=== PATIENT | female | born 1970 | race Caucasian/White ===

== ENCOUNTER 2016-06-24 13:25 | Inpatient (IN) | payer OTHER ==
--- NOTE | ~2016-06-24 | DS ---
Unit #: [id number] #: [id number] Patient: NOHEMY LOMAS [id number] [address] [address] [id number] I MR#: [id number] NAME: NOHEMY LOMAS ROOM: [facility] Age: 46 Sex: F Admission Date: 06/24/2016 : 1970 Discharge Date: 06/27/2016 Attending Physician: Loreto Taveras M.D. Primary Care Physician: No Primary Care Physician DISCHARGE SUMMARY SUMMARY PRINCIPAL DIAGNOSES 1. Severe anoxic encephalopathy. 2. Status post cardiopulmonary arrest. 3. Unintentional heroin overdose. 4. Acute hypoxic respiratory failure. 5. Aspiration pneumonia. 6. Shock liver. 7. Seizure secondary to anoxic brain injury. 8. Elevated troponin secondary to demand ischemia. 9. Intravenous drug use. CONSULTANTS 1. Dr. Torres - Neurology. 2. Dr. Brewer - Pulmonology. PROCEDURES 1. EEG on June 27, 2016, which was abnormal. This demonstrated decreased amplitude. No evidence of seizure or status. This is not consistent with brain . 2. CT of the head without contrast on June 24, 2016, which was grossly negative. 3. Multiple followup chest x-rays demonstrating left lower lobe infiltrate. CLINICAL HISTORY/HOSPITAL COURSE Ms. Lomas is a 46-year-old female brought to the emergency department unresponsive and was ultimately found to be pulseless. Time without pulse is unclear but patient did receive multiple rounds of epinephrine and bicarbonate in the parking lot prior to re-obtaining pulse and subsequently presenting to the emergency department. Neurologic examination upon presentation was poor and patient was admitted to the ICU, given intubation for airway protection. Dr. Torres was consulted as was Dr. Brewer. Unfortunately, patient does not demonstrate any of the three positive vital signs consistent with recovery of neurologic function. This was all discussed with patient's family and, ultimately, at the 72 hour vipul patient's family opted to withdrawal care. Patient on June 27, 2016, at 1353 in the afternoon. Unit #: [id number] #: [id number] Patient: NOHEMY LOMAS Dictated by... Kira Grullon M.D. UCHE/kirill TD: 06/28/2016 09:22 JOB #: [id number] DISCHARGE SUMMARY Page 1 of 1 X Kira Grullon MD DISCHARGE SUMMARY
--- NOTE | ~2016-06-24 | CO ---
Unit #: [id number] #: [id number] Patient: NOHEMY WALTER [id number] [address] [address] [id number] I MR#: [id number] NAME: NOHEMY WALTER ROOM: [facility] Age: 46 Sex: F Admission Date: 06/24/2016 : 1970 Attending Physician: Loreto Taveras M.D. Primary Care Physician: No Primary Care Physician CONSULTATION REPORT CHIEF COMPLAINT Patient presented to the emergency room in cardiac arrest, status post heroin overdose. HISTORY OF PRESENT ILLNESS Information is taken from the computer medical records and from the nurse as patient is intubated and there is no family. This patient is a 46-year-old female with unknown medical history, who was brought to the emergency room unresponsive by her boyfriend. It appears that she was found in the car by her boyfriend unconscious with IV drug abuse, syringe with heroin next to the patient. She was recently released from shelter approximately four months ago. States that the patient was sober for a few months and then started using heroin IV. Boyfriend left the scene shortly after she arrived. It appears that the cardiopulmonary arrest occurred in the parking lot and she was down for about 15 minutes with multiple rounds of epinephrine and bicarb x2 in the parking lot. The patient's rhythm was asystole for approximately 15 minutes. Currently, no one is at the bedside. PAST MEDICAL HISTORY Unknown. PAST SURGICAL HISTORY Unknown. HOME MEDICATIONS 1. Tenormin. 2. Ativan. ALLERGIES Unknown. SOCIAL HISTORY Unknown, other than positive for IV drug abuse with heroin and recent incarceration. FAMILY HISTORY Unknown. REVIEW OF SYSTEMS Unable to obtain. PHYSICAL EXAMINATION GENERAL: A 46-year-old white female in the ICU, intubated, and on Unit #: [id number] #: [id number] Patient: NOHEMY WALTER Diprivan drip. VITAL SIGNS: Temperature max has been 102.7, current temperature is 100.1. Patient is on a cooling blanket. Pulse 76, normal sinus rhythm, respirations per the ventilator, blood pressure 90/59. Height 5 feet 5 inches, weight is 77.5 kg, BMI is 28. HEENT: Normocephalic and atraumatic. No xanthelasma. NECK: Supple. LUNGS: Clear to auscultation anteriorly. HEART: S1, S2. No S3, S4. No murmurs, rubs, or gallops. PMI is nondisplaced. ABDOMEN: Round. Positive bowel sounds. No clubbing, cyanosis, or edema. Patient is sedated on Diprivan, nonresponsive. DIAGNOSTIC STUDIES LABORATORY: ABG: A pH 7.551, pCO2 of 37.9, pO2 of 159, bicarbonate 33.2. Chemistry: Sodium 140, potassium 3.7, chloride 107, CO2 of 23, BUN 13, creatinine 0.7, glucose 155. Magnesium 1.9. Total protein 5.5, albumin 3.3, AST 219, ALT 221, alkaline phosphatase 43. Troponin less than 0.03, 0.63, 0.84. Ammonia 62. Lactic acid 2.9, down from 7.3. Cholesterol 150, triglycerides 116, LDL 92, HDL 35. TSH 0.36. Coagulation: PT 11.3, INR 1.1, PTT 24.7. Hematology: Hemoglobin 12, hematocrit 36.3, white blood cell count 26.6, platelet count 245,000. Chemistry toxicology is positive for opiates. Urinalysis showed 2+ protein, 500 glucose, 1+ blood, white blood cells were 25-50, bacteria 2+. Blood cultures are pending. Urine culture shows no growth at 24 [address]. IMAGING: CT of the head without contrast shows motion-limited exam, otherwise it is grossly negative. No intracranial abnormality is seen. No hemorrhage mass. No mass effect. No cerebral edema. No hydrocephalus. Chest x-ray: Bilateral diffuse perihilar airspace change concerning for edema, most likely pneumonia. No pleural effusion or pneumothorax. IMPRESSION 1. Status post cardiac arrest with documentation of 15 minutes of asystole and cardiopulmonary resuscitation. 2. RN reports witnessed seizure activity. 3. Acute non ST elevation myocardial infarction, status post arrest. A 12-lead EKG shows normal sinus rhythm. No acute ST elevation. No acute ST depression. No T-wave abnormality. Positive troponins with troponins continuing to elevate. Current troponin this morning at 0400 is 0.84. Echocardiogram has been done, results are pending. 4. Elevated liver enzymes. 5. Sepsis with fever and leukocytosis, currently no growth on urinalysis. Blood cultures are pending. Patient is currently unresponsive. Consider OTTO. Rule out cardiac valve vegetation. Will discuss with MD. Further recommendations per MD to follow. Dictated by... Jane Mark A.P.R.N. WAYNE/elio TD: 06/25/2016 11:28 Unit #: [id number] #: [id number] Patient: NOHEMY WALTER JOB #: [id number] CONSULTATION REPORT Page 1 of 1 X X CONSULTATION REPORT
--- NOTE | ~2016-06-24 | CO ---
Unit #: [id number] #: [id number] Patient: NOHEMY REILLY [id number] [facility] [address] [facility]. [place], [place] [address] [id number] I MR#: [id number] NAME: NOHEMY REILLY ROOM: [facility] Age: 46 Sex: F Admission Date: 06/24/2016 : 1970 Attending Physician: Loreto Taveras M.D. Consultation Date: 06/25/2016 CONSULTATION REPORT PRIMARY CARE PHYSICIAN None. REASON FOR CONSULTATION Possible hypoxic-anoxic encephalopathy secondary to overdose. PATIENT IDENTIFICATION This is a 46-year-old apparently right-handed white female, who was evaluated in room ICU bed 18 at [facility] SOURCE OF INFORMATION The medical record and my discussion with the patient's mother and also grandmother. PROBLEM LIST 1. She has hypoxic-anoxic encephalopathy and possible drug overdose. She is status post CPR. 2. History of polysubstance abuse. 3. Respiratory failure. 4. Possible anoxic encephalopathy. HISTORY OF PRESENT ILLNESS This is a 46-year-old female, who was actually brought in a very strange circumstance. Apparently, the patient was in her car with a boyfriend and they went to a gas station and apparently the boyfriend went inside and came back and found the patient in the car with a syringe. The patient apparently had used it. She was unconscious and what is reported, though the boyfriend is not here that he decided to bring her himself saying that he was about 10 to 15 minutes away from hospital anyway. She was coded and apparently in the parking lot. She was coded for about 15 minutes. She had pulseless electrical activity. She received chest compressions and medication and she has been unresponsive. Except for occasional tachypnea, nothing else has happened. There was some jerking type activity, per explanation it looks like anoxic myoclonus and she is now given full support and we will see how things go. Her urine drug screen was positive for opioids and her ALT and AST are elevated. She is intubated and sedated, but with sedation vacation, there is some tachypnea, but nothing else and no purposeful activity. The patient has known history of IV drug use and alcohol abuse. The patient's mother and grandmother are very realist. Her grandmother used to be a substance abuse counselor and she suspected that this is Unit #: [id number] #: [id number] Patient: NOHEMY REILLY going to happen. The patient came to the hospital at 1:25 p.m. on 06/24/2016. Her downtime is at least 20 minutes that we know, but we have no idea how long where she down before her boyfriend noted her. There is no prior history of seizures or other events. PAST MEDICAL HISTORY Drug abuse and alcohol abuse. PAST SURGICAL HISTORY Not known. ALLERGIES None known to me. HOME MEDICATIONS Apparently were Tenormin and Ativan, but I am uncertain about that. FAMILY HISTORY No history of seizures or primary neurologic condition. SOCIAL HISTORY She apparently has a boyfriend. She apparently has alcohol or drug abuse history. She also had some legal issues. She was in the skilled nursing and just released. REVIEW OF SYSTEMS Could not be obtained because of the patient's comatose state. PHYSICAL EXAMINATION VITAL SIGNS: Temperature 98.7, T-max was 103.1, pulse 77, respirations 37, blood pressure 126/83, O2 saturations were 100%, weight of 270 pounds. BMI was 28. NEUROLOGIC: The patient at present is possibly Angy Coma Scale of 2T, though at only on one occasion, I saw her sort of move her both upper eyelids. There is 0/3 eye signs and eyes are dysconjugate. The pupils are pinpoint and nonreactive. No corneals. No doll eyes. Cranial nerve examination as discussed above plus no facial asymmetry. Hearing is questionable. Tongue was midline. I could not visualize oropharynx or uvula. No spontaneous head turning was seen. Motor examination, I did not see any responses whatsoever. Sensory examination, I did not see any responses whatsoever. I could not get any reflexes. Toes are mute. Gait and coordination could not be evaluated. DIAGNOSTIC STUDIES IMAGING STUDIES: CT head is reported as unremarkable. LABORATORY RESULTS: Initial ABGs, pH was 7.47. Her BUN is 13, creatinine is 0.7, albumin is 3.3, AST was 219, ALT was 221. Troponin was going up Unit #: [id number] #: [id number] Patient: NOHEMY REILLY from 0.03 to 0.84. Lactic acid was as high as 7.3 when she came in yesterday. White count went from 8.2 to 26.6, H and H was 12 and 36.3, platelet count was 245. Urine drug screen positive for opioids. Urinalysis showed 2+ protein, 500 glucose, 1+ blood, 25 to 50 wbc's, 2+ bacteria. IMPRESSION Likely hypoxic and anoxic encephalopathy could be secondary to polysubstance abuse, on overdose, and respiratory depression. Right now, I am going to take it as hypoxic and anoxic encephalopathy and we will see how things go and further treatment will be based on how she does. I had a very detailed discussion with the patient's mother and we discussed the range of possibilities from full recovery to brain or anything in between. We will follow up and see how things go and I am not seeing anything suggesting seizures. She is getting EEGs almost flat with some beta artifact, so I will review that on the appropriate monitor and we will see how things go. Continue antiepileptics though I doubt this is epileptic event. Her urine drug screen was positive, but no alcohol was found. I will give her some thiamine and we will see how things electrode turner and finisher and we will evaluate her at 24, 48, and 72 hours to decide future course of action and the family seemed very much resigned to the fact of poor outcome, but we will give her best and see how things go and treat everything as indicated. It is a poor prognostic picture as I look at it almost at 24 hours. Dictated by... Ashlie Blount/nancy TD: 06/27/2016 00:16 JOB #: [id number] CONSULTATION REPORT Page 1 of 1 X Tisha Torres MD CONSULTATION REPORT
--- NOTE | ~2016-06-24 | EKG ---
PATIENT: NOHEMY WALTER UNIT #: [id number] Ventricular Rate: 97 BPM Atrial Rate: 97 BPM P-R Interval: 144 ms QRS Duration: 94 ms Q-T Interval: 422 ms QTC Calculation(Bezet): 535 ms P [place]: 72 degrees Calculated R [place]: 62 degrees Calculated T [place]: 56 degrees Diagnosis Line: Normal sinus rhythm Diagnosis Line: Prolonged QT Nonspecific ST abnormality Diagnosis Line: Abnormal ECG Diagnosis Line: No previous ECGs available Diagnosis Line: Confirmed by DEVAUGHN RODRIGUEZ MD ([id number]) on 06/24/2016 Diagnosis Line: 5:28:02 PM INTERPRETING MD: JENNIFER HEDRICK
--- NOTE | ~2016-06-24 | HP ---
Unit #: [id number] #: [id number] Patient: NOHEMY WALTER [id number] [address] [address] [id number] P MR#: [id number] NAME: NOHEMY WALTER ROOM: Age: 46 Sex: F Admission Date: 06/24/2016 : 1970 Attending Physician: Rah Diaz M.D. HISTORY AND PHYSICAL CHIEF COMPLAINT Cardiopulmonary arrest. HISTORY OF PRESENT ILLNESS The patient is a 46-year-old female with unknown medical history brought to the emergency room, unresponsiveness. The patient was brought to the emergency room by the patient's boyfriend. The patient was found in the car by the boyfriend, unconscious. The patient was found with a IV drug abuse syringe with heroin next to the patient. The patient was recently released from the half-way and was out for four months. The patient was sober for a few months and started using the IV drug abuse. No further history is available and the patient's boyfriend is not in the room to provide further history. The patient had a cardiopulmonary arrest in the parking lot. The patient was down for 15 minutes and received multiple rounds of epinephrine and bicarb times 2 in the parking lot. The patient's rhythm was asystole with reperfusion, down for 15 minutes. The patient is being admitted for the above reasons. No further history is available. PAST MEDICAL HISTORY Unknown. PAST SURGICAL HISTORY Unknown. HOME MEDICATIONS 1. Tenormin. 2. Ativan. ALLERGIES SOCIAL HISTORY Unknown. Positive for IV drug abuse with heroin. FAMILY HISTORY Unknown. PHYSICAL EXAMINATION VITAL SIGNS: Patient's vital are missing from the face sheet but from the telemetry the patient is afebrile, heart rate is 127, blood pressure 140/120, saturating 100% on the ventilator. GENERAL: Patient is lying on the bed. HEENT: Atraumatic, normocephalic. Pupils sluggish to react. Dry mucous membrane. NECK: Supple. Unit #: [id number] #: [id number] Patient: NOHEMY WALTER LUNGS: Decreased air entry at the bases, coarse breath sounds. HEART: Regular rate and rhythm tachycardic. ABDOMEN: Soft, positive bowel sounds. EXTREMITIES: Patient has track mcmanus from the IV drug abuse. Positive for tattoos. NEUROLOGIC: Patient is sedated and intubated. PSYCHIATRIC: Unable to assess. DIAGNOSTIC STUDIES LABORATORY: Blood gas shows pH 7.47, pCO2 is 31, pO2 is 469, bicarb 23.7, oxygen saturation is 96.8 at 100% FiO2. Glucose 294, BUN 11, creatinine 1.4, sodium 139, potassium 2.8, chloride 102, bicarb 21, calcium 9.4, total protein 5.3, albumin 3.3, AST 219, ALT 221, alkaline phosphatase 63. Ammonia 62. Lactic acid 7.3. INR 1.1. WBC 8.2, hemoglobin 11, hematocrit 33.4, platelets 168. IMAGING: Chest x-ray shows patient with endotracheal tube 2.3 cm above the layne. There is bilateral diffuse perihilar airspace changes concerning for edema, less likely pneumonia. There is no pleural effusion or pneumothorax. CT of the head shows motion limited examination. The examination is grossly negative. No acute intracranial abnormality is visible. CARDIOVASCULAR: EKG shows normal sinus rhythm with a rate of 97 beats per minute, QTC 535. ASSESSMENT AND PLAN 1. Unresponsiveness. 2. Septic shock. Patient is off of the pressors. 3. Cardiopulmonary arrest. 4. Acute respiratory failure. 5. IV drug abuse. 6. Hypokalemia. PLAN 1. Admit patient to the inpatient ICU. 2. Continue with vent management. 3. Follow with the septic shock protocol. 4. Check the troponins and echocardiogram and drug screen. 5. Initiate empiric IV antibiotic with Zosyn and repeat the lactic acid again. 6. Patient will have consult with Cardiology and critical care for the cardiopulmonary arrest. 7. Obtain the records from the family. 8. More recommendations will follow as more lab results become available. Dictated by Ashlie Nowak Unit #: [id number] #: [id number] Patient: NOHEMY WALTER TD: 06/24/2016 15:58 JOB #: [id number] HISTORY AND PHYSICAL Page 1 of 1 X X HISTORY AND PHYSICAL
--- NOTE | ~2016-06-24 | CR72 ---
[facility] A Service of [facility] & [facility] RADIOLOGY TEXT RESULTS PATIENT: NOHEMY REILLY LOCATION: [place] [id number] : [birth year] UNIT #: [id number] AGE: [address]: Loreto Taveras MD SEX: F ORDER DR: [id number] [facility] [address]. [place], [place] [address] [id number] I MR#: [id number] Acc #: [id number] NAME: NOHEMY REILLY : 1970 SEX: F STUDY DATE/TIME: 06/27/2016 5:36 UNIT: [facility] ROOM: [facility] STUDY DESCRIPTION: CR Chest Single View Portable Attending Physician: Loreto Taveras M.D. Ordering Physician: Abraham Brewer M.D. Primary Care Physician: No Primary Care Physician MEDICAL IMAGING REPORT This report is preliminary unless electronic signature is present EXAM Portable chest, 06/27/2016. HISTORY Respiratory failure and fever for 3 days. COMPARISON Chest, 06/26/2016. FINDINGS Frontal chest demonstrates tubes and lines in stable position. No pneumothorax. Lungs are clear. Heart size and mediastinum are stable. IMPRESSION Tubes and lines stable. No pneumothorax. No other acute chest findings. No change from 06/26/2016. Dictated by... Gary Ott M.D. THIS IS AN ELECTRONICALLY VERIFIED REPORT Gary Ott M.D. at 06/28/2016 8:52 AM CHRISTINAO/john TD: 06/27/2016 07:19 JOB #: [id number] MEDICAL IMAGING REPORT Page 1 of 1 COPY
--- NOTE | ~2016-06-24 | EKG ---
PATIENT: NOHEMY REILLY UNIT #: [id number] Ventricular Rate: 71 BPM Atrial Rate: 71 BPM P-R Interval: 148 ms QRS Duration: 86 ms Q-T Interval: 546 ms QTC Calculation(Bezet): 593 ms P [place]: 60 degrees Calculated R [place]: 79 degrees Calculated T [place]: 101 degrees Diagnosis Line: Normal sinus rhythm Diagnosis Line: Marked T wave abnormality, consider anterolateral Diagnosis Line: ischemia Diagnosis Line: Prolonged QT Diagnosis Line: Abnormal ECG Diagnosis Line: Diagnosis Line: Confirmed by HALEIGH SHULTZ MD ([id number]) on Diagnosis Line: 06/26/2016 1:52:23 PM INTERPRETING MD: MARGIE
--- NOTE | ~2016-06-24 | CR72 ---
[facility] A Service of [facility] & [facility] RADIOLOGY TEXT RESULTS PATIENT: NOHEMY REILLY LOCATION: [place] [address] : [birth year] UNIT #: [id number] AGE: [address]: Loreto Taveras MD SEX: F ORDER DR: [id number] [facility] [address] [place], [place] [address] [id number] I MR#: [id number] Acc #: [id number] NAME: NOHEMY REILLY : 1970 SEX: F STUDY DATE/TIME: 06/26/2016 5:04 UNIT: [facility] ROOM: [facility] STUDY DESCRIPTION: CR Chest Single View Portable Attending Physician: Loreto Taveras M.D. Ordering Physician: Abraham Brewer M.D. Primary Care Physician: Primary Care Physician No MEDICAL IMAGING REPORT This report is preliminary unless electronic signature is present EXAM Single view chest. INDICATION Respiratory failure. Overdose. FINDINGS Single, portable, AP view of the chest compared to 06/25/2016. Support lines and tubes remain in place. Heart and mediastinal contours are normal. There is improved aeration in the left lung. No pneumothorax. IMPRESSION Improving aeration in the left lung. Dictated by... Atul Barron M.D. THIS IS AN ELECTRONICALLY VERIFIED REPORT Atul Barron M.D. at 06/26/2016 11:14 PM SHARLENE/john TD: 06/26/2016 08:48 JOB #: [id number] MEDICAL IMAGING REPORT Page 1 of 1 COPY
--- NOTE | ~2016-06-24 | CR72 ---
[facility] A Service of [facility] & [facility] RADIOLOGY TEXT RESULTS PATIENT: NOHEMY REILLY LOCATION: [address] : [birth year] UNIT #: [id number] AGE: [address]: Loreto Taveras MD SEX: F ORDER DR: [id number] [facility] [address] [facility] [address] [facility]. [place], [place] [address] [id number] I MR#: [id number] Acc #: [id number] NAME: NOHEMY WALTER : 1970 SEX: F STUDY DATE/TIME: 06/25/2016 14:22 [facility] STUDY DESCRIPTION: CR Chest Single View Portable Attending Physician: Loreto Taveras M.D. Ordering Physician: Physician Non-Staff Primary Care Physician: No Primary Care Physician MEDICAL IMAGING REPORT This report is preliminary unless electronic signature is present EXAM Portable chest x-ray 06/25/2016 HISTORY New central line. AP radiographs of the chest are presented. COMPARISON STUDIES Comparison 06/24/2016 at 13:32 hours. FINDINGS Endotracheal tube unchanged. Interval placement of an enteric tube the full extent of which is not included on these images. I believe the side port is at the level of the gastroesophageal junction. For placement of side port in mid to distal stomach the enteric tube could be advanced about 10-15 cm and reassessed radiographically. There is a right internal jugular approach central venous catheter which terminates in the superior vena cava. Heart mildly enlarged. Lung volumes improved compared to prior study. There is some relative lucency in the right upper lung zones suggesting underlying emphysema. Mild vascular congestion. Mild prominence of peribronchial markings. Findings suggest mild bronchitis, or interstitial edema, or reactive airway disease. Overall, given the improved lung volumes, pulmonary parenchymal findings have improved compared to yesterday's examination. There is no dense airspace disease, pleural effusion or pneumothorax. Nipple shadow artifacts noted over the lower thorax. Dictated by... Randell Barreto M.D. THIS IS AN ELECTRONICALLY VERIFIED REPORT Randell Barreto M.D. at 06/25/2016 7:52 PM [facility] A Service of [facility] & [facility] RADIOLOGY TEXT RESULTS PATIENT: NOHEMY REILLY LOCATION: [facility]3-18 : [birth year] UNIT #: [id number] AGE: [address]: Loreto Taveras MD SEX: F ORDER DR: CHANTAL/caleb TD: 06/25/2016 18:25 JOB #: [id number] MEDICAL IMAGING REPORT Page 1 of 1 COPY
--- NOTE | ~2016-06-24 | CO ---
Unit #: [id number] #: [id number] Patient: NOHEMY WALTER [id number] [address] [address] [id number] MR#: [id number] NAME: NOHEMY WALTER ROOM: CIC3 Age: 46 Sex: F Admission Date: 06/24/2016 : 1970 Attending Physician: Dre Mata M.D. Primary Care Physician: Primary Care Physician No Consultation Date: 06/24/2016 CONSULTATION REPORT REASON FOR CONSULT Status post cardiopulmonary arrest. HISTORY OF PRESENT ILLNESS This is a 46-year-old female with unknown past medical history who presented to the emergency room via private vehicle accompanied by her boyfriend after she passed out. Per the boyfriend, he left his car at the gas station to hand picker something and by the time he came back, he found her out, unresponsive, with heroin syringe next to her. Patient was released from the nursing home just a few months ago. The patient used to be an alcoholic and IV drug user but she was sober for a few months. Apparently, the gas station is 5 to 10 minutes away from the hospital and it is unclear for how long patient was down. By the time she arrived at the ER, she was in a pulseless electrical activity and she received 15 minutes of chest compression and medication. Currently, patient is unresponsive. PAST MEDICAL HISTORY Unknown. PAST SURGICAL HISTORY Unknown. HOME MEDICATIONS 1. Tenormin. 2. Ativan. ALLERGIES No known drug allergies. SOCIAL HISTORY History of alcoholism and drug abuse. FAMILY HISTORY Unknown. PHYSICAL EXAMINATION VITAL SIGNS: Blood pressure 135/62, respiratory rate 18, O2 saturation 100%. GENERAL: The patient is unresponsive. HEENT: Atraumatic, normocephalic. Right pupil is rolled up. NECK: Supple. No JVD. No lymphadenopathy. LUNGS: Bilateral rhonchi main at the bases. Unit #: [id number] #: [id number] Patient: NOHEMY WALTER HEART: S1, S2. No murmur, gallops or rubs. ABDOMEN: Soft, nontender. Bowel sounds are positive. No hepatosplenomegaly. EXTREMITIES: No edema or cyanosis. NEUROLOGIC: Patient is completely unresponsive even to painful stimuli. However, she was on propofol drip up to the time she came to the ICU. Per staff, she had some myoclonus jerking which responded and subsided with Ativan. She still has positive cough reflex. SKIN: No rashes. DIAGNOSTIC STUDIES LABORATORY: Creatinine 1.4, potassium 2.8, ALT 219. White blood cell count 8.2. IMAGING: CT head is unremarkable. ASSESSMENT 1. Acute hypoxic respiratory failure. 2. Status post cardiopulmonary arrest. 3. History of hypertension. 4. Hypokalemia. 5. Transaminitis. 6. Lactic acidosis. PLAN 1. Continue vent support pending further evaluation. 2. Patient was started on hypothermia protocol in the ED as the time of the arrest was unclear. 3. Will continue supportive care hoping that this patient will start responding. 4. Will minimize sedation as tolerated. 5. Zosyn for possible aspiration. 6. IV hydration. 7. DVT and GI prophylaxis. Critical care time spent on this patient was 31 minutes. Critical time spent on this patient was minutes. Dictated by... Mitch Mata M.D. EA/miriam TD: 06/24/2016 20:50 JOB #: [id number] Unit #: [id number] #: [id number] Patient: NOHEMY WALTER CONSULTATION REPORT Page 1 of 1 X MITCH ESCOBAR MD CONSULTATION REPORT
--- NOTE | ~2016-06-24 | A ---
[facility] Nutrition Therapy DATE: 06/25/16 Patient: NOHEMY WALTER Physician: JOSE Address: [address] [place] [address] FRONT Room/Bed: [address], Zip: [place] [address] Admit Date: 06/24/16 Date of : [birth year] Height: 5 5 Weight: 170 77.5 NUTRITIONAL ASSESSMENT: REASON: NPO, intubated Admitting Dx: 46 y/o female admitted with heroin OD, found unresponsive, cardiopulmonary arrest PMH: IV heroin abuse, other PMH unknown Anthropometrics: Ht: 65", Wt: 77.5 kg, BMI: 28 (overweight) Labs: Glucose 155, POC 229 (06/24), AST 219, ALT 221, lipid panel WNL, A1C pending Meds: Keppra, kcl, nacl, mgso4, Novolog (medium SSI), Propofol @ 23.3 ml/hr (615 lipid kcals) I/O & Bowel function: Last BM 06/24, abdomen soft, NGT to LWS Skin Integrity: Scattered bruising BUE, intact abrasion L side, puncture vipul R hand, no edema Estimated Nutrition Needs: [id number] kcals per day (20-25 kcals/kg) 70-85 g protein per day (0.9-1.1 g/kg) Fluids consistent with kcal needs or per MD Assessment: Chart reviewed, events noted. See reason for assessment, admitting dx and PMH as stated above. Patient found unresponsive by her boyfriend, she was recently released from alf, history of IVDA. No nutrition query/malnutrition risk score available. She is NPO, has NGT to LWS, on K/Mg protocol. She is currently sedated with Propofol @ 23.3 ml/hr, providing 615 lipid kcals. During sedation vacation she has had seizure-like activity and is not responding. Will start enteral nutrition per RN, see recs below. Dx: Inadequate energy intake r/t intubation AEB NPO, need for EN. Intervention: Initiate enteral nutrition Monitoring, Evaluation and Goals: 1. EN consistent with estimated needs. 2. Improvement in labs (glucose, AST, ALT), lytes will remain WNL. 3. Promote regular GI function. [facility] Nutrition Therapy DATE: 06/25/16 Patient: NOHEMY WALTER Physician: JOSE Address: [address] FRONT Room/Bed: [address], Zip: [place] [address] Admit Date: 06/24/16 Date of : [birth year] Height: 5 5 Weight: 170 77.5 Monitor: Per protocol, criteria to determine if above goals met Recommendations: 1. Once medically feasible start enteral nutrition with Jevity 1.5 @ 20 ml/hr and increase by 10 ml q 6 hours until goal rate of 30 ml/hr is reached. Note this is the patient's goal rate WITH PROPOFOL, which is currently providing 615 lipid kcals. Please order 30 ml Prostat BID and give through tube to meet protein needs. This nutrition regimen + kcals from sedation will provide 1895 kcals, 76 g protein and 547 ml water. Once at goal rate add free water flushes of 225 ml q 4 hours, or per MD. 2. If Propofol is D/C increase enteral feeds to new goal rate of 50 ml/hr and discontinue Prostat. This will provide 1800 kcals, 77 g protein and 912 ml water. 3. Will follow-up to check A1C lab, which is pending at this time. Patient has been hyperglycemic but unable to obtain full PMH at admission, so any history of diabetes is not known. Continue insulin regimen and Accucheks. RD will follow hospital course Moderate-severe nutrition risk Respectfully, Ana Douglas, MAKSIM, MARU [employer] [facility] cc: client file
--- NOTE | ~2016-06-24 | CR72 ---
[facility] A Service of [facility] RADIOLOGY TEXT RESULTS PATIENT: NOHEMY WALTER LOCATION: CICCU3 CICCU318 : [birth year] UNIT #: [id number] AGE: [address]: Loreto Taveras MD SEX: F ORDER DR: [id number] [facility] [address]. [place], [place] [address] [id number] P MR#: [id number] Acc #: [id number] NAME: NOHEMY WALTER : 1970 SEX: F STUDY DATE/TIME: 06/24/2016 13:32 UNIT: CARLEE ROOM: STUDY DESCRIPTION: CR Chest Single View Portable Attending Physician: Rah Diaz M.D. Ordering Physician: Rah Diaz M.D. MEDICAL IMAGING REPORT This report is preliminary unless electronic signature is present EXAM Chest portable 06/24/2016 1332 hours HISTORY 46-year-old woman with shortness of air, overdose. Patient suffered arrest and was resuscitated requiring intubation today. COMPARISON None. FINDINGS Portable chest demonstrates an endotracheal tube with tip 2.3 cm above the layne. Cardiac, mediastinal contours are normal. There is bilateral perihilar and suprahilar airspace changes likely representing edema. Bilateral pneumonia could have this appearance. There is no pleural effusion or pneumothorax. There is mild gaseous distension of the stomach. IMPRESSION 1. Endotracheal tube tip 2.3 cm above the layne. 2. There is bilateral diffuse perihilar airspace change concerning for edema, less likely pneumonia. There is no pleural effusion or pneumothorax. Dictated by... Elba Pope M.D. THIS IS AN ELECTRONICALLY VERIFIED REPORT Elba Pope M.D. at 06/25/2016 9:21 AM BREE/stefanyr TD: 06/24/2016 14:33 JOB #: [id number] [facility] A Service of [facility] RADIOLOGY TEXT RESULTS PATIENT: NOHEMY WALTER [facility] [birth year] UNIT #: [id number] AGE: [address]: Loreto Taveras MD SEX: F ORDER DR: MEDICAL IMAGING REPORT Page 1 of 1 COPY
--- NOTE | ~2016-06-24 | EE ---
Unit #: [id number] #: [id number] Patient: NOHEMY REILLY [id number] [address] [address] [id number] I MR#: [id number] NAME: NOHEMY REILLY : 1970 SEX: F STUDY DATE/TIME: 06/25/2016 UNIT: [facility] ROOM: [facility] STUDY DESCRIPTION: Attending Physician: Loreto Taveras M.D. Referring Physician: Tisha Torres M.D. Primary Care Physician: Primary Care Physician No NEURODIAGNOSTICS REPORT EXAM EEG report REASON FOR STUDY Possible hypoxic and anoxic encephalopathy with some motion artifact to rule out seizure or status. EEG DESCRIPTION This is an inpatient, portable digitally recorded multimontage adult EEG with leads placed according to the International 10/20 system. Hyperventilation and photic stimulation were not done. FINDINGS This EEG showed decreased amplitude though the posterior rhythm was not well-established and there may be Beta artifact and motion artifact, beyond that nothing suggesting seizure or status or interictal discharges, some motion-type activity was seen which could be stimulation. No activity was seen to that. No seizures, status, or interictal discharges. No asymmetry. IMPRESSION Abnormal EEG showing decreased amplitude with artifact but nothing suggesting seizure or status, obviously not brain , and brain protocol was not done. This is, otherwise, nonspecific and nondiagnostic and not prognostic, so if needed repeat study may be considered. Dictated by... Ashlie Blount/curtis TD: 06/27/2016 11:53 JOB #: [id number] Unit #: [id number] #: [id number] Patient: NOHEMY REILLY NEURODIAGNOSTICS REPORT Page 1 of 1 X Tisha Torres MD NEURODIAGNOSTICS REPORT
--- NOTE | ~2016-06-24 | CT71 ---
[facility] A Service [facility] RADIOLOGY TEXT RESULTS PATIENT: NOHEMY WALTER LOCATION: CEDOF : [birth year] UNIT #: [id number] AGE: [address]: SHEMAR CARUSO MD SEX: F ORDER DR: [id number] [id number] [place], [place] [address] [id number] P MR#: [id number] Acc #: [id number] NAME: NOHEMY WALTER : 1970 SEX: F STUDY DATE/TIME: 06/24/2016 13:57 UNIT: CARLEE ROOM: STUDY DESCRIPTION: CT Head Wo Contrast Attending Physician: Rah Diaz M.D. Ordering Physician: Rah Diaz M.D. MEDICAL IMAGING REPORT This report is preliminary unless electronic signature is present EXAM CT head, noncontrast, 06/24/2016 HISTORY 46-year-old female in the ED intubated and unresponsive after reported drug overdose. TECHNIQUE CT examination of the head without IV contrast. This CT exam was performed with one or more of the following radiation dose reduction techniques: automatic exposure control, adjustment of mA and/or kV according to patient size, and iterative reconstruction. FINDINGS The images are degraded by patient motion artifact. No acute intracranial abnormality is visible. No evidence of intracranial hemorrhage, mass, mass effect, cerebral edema or hydrocephalus. IMPRESSION 1. Motion-limited examination. 2. The examination is grossly negative. No acute intracranial abnormality is visible. Dictated by... Mark Bates M.D. THIS IS AN ELECTRONICALLY VERIFIED REPORT Mark Bates M.D. at 06/24/2016 4:29 PM GWEN/caleb TD: 06/24/2016 15:06 [facility] A Service [facility] RADIOLOGY TEXT RESULTS PATIENT: NOHEMY WALTER LOCATION: [facility]OF : [birth year] UNIT #: [id number] AGE: [address]: SHEMAR CARUSO MD SEX: F ORDER DR: JOB #: [id number] MEDICAL IMAGING REPORT Page 1 of 1 COPY
--- NOTE | ~2016-06-24 | EKG ---
PATIENT: NOHEMY WALTER UNIT #: [id number] Ventricular Rate: 68 BPM Atrial Rate: 68 BPM P-R Interval: 148 ms QRS Duration: 82 ms Q-T Interval: 478 ms QTC Calculation(Bezet): 508 ms P [place]: 20 degrees Calculated R [place]: 71 degrees Calculated T [place]: 56 degrees Diagnosis Line: Normal sinus rhythm Diagnosis Line: T wave abnormality, consider anterior ischemia Diagnosis Line: Prolonged QT Diagnosis Line: Abnormal ECG Diagnosis Line: When compared with ECG of 24-JUN-2016 13:36, Diagnosis Line: T wave inversion now evident in Anterior leads Diagnosis Line: Confirmed by DAYA COLE MD ([id number]) on Diagnosis Line: 06/26/2016 4:25:38 PM INTERPRETING MD: KELSEY HEDRICK
[2016-06-24 14:08] LABS: BASOPHIL# 0.1 X10e3 (0-0.3); BASOPHIL% 0.7 % (0-2.5); DIFF IND YES; EOSINOPHIL# 0.1 X10e3 (0-0.7); EOSINOPHIL% 0.7 % (0.0-7.0); HEMATOCRIT 33.4 % (35.0-45.0); LYMPHOCYTE# 4.2 X10e3 (1.0-3.5); LYMPHOCYTE% 50.5 % (17.0-45.0); MEAN CELL VOLUME 89.3 FL (83-96); MEAN CORPUSCULAR HEMOGLOBIN 29.3 PG (28-34); MEAN CORPUSCULAR HGB CONC 32.8 g/dL (30-36); MEAN PLATELET VOLUME 9.8 FL (6.5-11.5); MONOCYTE# 0.2 X10e3 (0-1.0); MONOCYTE% 2.5 % (3.0-12.0); NEUTROPHIL# 3.8 X10e3 (1.5-7.1); NEUTROPHIL% 45.6 % (40-75); PLATELET COUNT 168 X10e3 (140-420); RED BLOOD COUNT 3.75 X10e (3.90-5.30); RED CELL DISTRIBUTION WIDTH 13.4 % (11.0-15.5); WHITE BLOOD COUNT 8.2 X10e3 (4.0-10.5)
[2016-06-24 14:18] LABS: INR 1.1; PARTIAL THROMBOPLASTIN TIME 24.7 SECONDS (23.5-31.3); PROTHROMBIN TIME (PATIENT) 11.3 SECONDS (9.6-11.5)
[2016-06-24] MEDS ORDERED: PATIENT'S PHARMACY (14:29)
[2016-06-24 14:37] LABS: ARTERIAL BLD GAS O2 SATURATION 96.8 % (90.0-100.0); ARTERIAL BLOOD GAS CARBOXY HB 2.7 %sat (0.0-9.0); ARTERIAL BLOOD GAS HCO3 23.7 mmol/L; ARTERIAL BLOOD GAS MET HB 0.8 %sat (0.0-2.0); ARTERIAL BLOOD GAS PCO2 31.9 mmHg (35.0-45.0); ARTERIAL BLOOD GAS pH 7.479 (7.350-7.450)
[2016-06-24 14:38] LABS: ALBUMIN SERUM 3.3 g/dL (3.5-5.0); BILIRUBIN, DIRECT 0.1 mg/dL (0.0-0.2); BILIRUBIN,INDIRECT 0.4 mg/dL (0.0-0.9); BILIRUBIN,TOTAL 0.5 mg/dL (0.2-2.0); BUN/CREATININE RATIO 7.85; CALCIUM SERUM 9.4 mg/dL (8.4-10.2); CREATININE SERUM 1.4 mg/dL (0.6-1.4); GLOM FILT RATE Estimated 45.3 mL/min (>60); PROTEIN TOTAL SERUM 5.5 g/dL (6.0-8.3)
[2016-06-24 14:40] LABS: ARTERIAL BLOOD GAS ALLEN TEST NORMAL; ARTERIAL BLOOD GAS ART SITE RIGHT RADIAL; ARTERIAL BLOOD GAS DELIVERY VENT; ARTERIAL BLOOD GAS VENT MODE A/C; ARTERIAL DRAW? YES
[2016-06-24 14:52] LABS: PLATELET ESTIMATE NORMAL (NORMAL)
[2016-06-24] MEDS ORDERED: TENORMIN25 MG PO (14:53)
[2016-06-24 14:54] LABS: POTASSIUM 2.8 mmol/L (3.5-5.1)
[2016-06-24] MEDS ORDERED: ATIVAN0.5 MG PO (14:54)
[2016-06-24 15:26] LABS: URINE SOURCE CLEAN CATCH
[2016-06-24 15:39] LABS: URINE APPEARANCE CLEAR; URINE BILIRUBIN NEG (NEG); URINE BLOOD 1+ (NEG); URINE COLOR YELLOW; URINE GLUCOSE 500 MG/DL (NEG); URINE KETONE NEG (NEG); URINE LEUKOCYTE ESTERASE NEG (NEG); URINE NITRATE NEG (NEG); URINE PH 7.5 (5-8); URINE PROTEIN 2+ (NEG); URINE UROBILINOGEN 0.2 MG/DL (NEG)
[2016-06-24 15:41] LABS: AMPHETAMINE NEG (NEG); BARBITURATES NEG (NEG); BENZODIAZEPINES NEG (NEG); COCAINE NEG (NEG); CULTURE INDICATED? YES; MARIJUANA NEG (NEG); OPIATES POS (NEG); TRICYCLIC ANTIDEPRESSANTS NEG (NEG); U METHADONE NEG (NEG); URINE BACTERIA AUWI 2+ (NEGATIVE); URINE SQUAMOUS EPITHELIAL CELL NONE SEEN /[HPF]; UWBCS1 AUWI 25-50 (0-5)
[2016-06-25 04:17] LABS: HEMATOCRIT 36.3 % (35.0-45.0); MEAN CELL VOLUME 85.7 FL (83-96); MEAN CORPUSCULAR HEMOGLOBIN 28.4 PG (28-34); MEAN CORPUSCULAR HGB CONC 33.1 g/dL (30-36); MEAN PLATELET VOLUME 9.3 FL (6.5-11.5); RED BLOOD COUNT 4.24 X10e (3.90-5.30); RED CELL DISTRIBUTION WIDTH 13.4 % (11.0-15.5); WHITE BLOOD COUNT 26.6 X10e3 (4.0-10.5)
[2016-06-25 04:54] LABS: BUN/CREATININE RATIO 18.57; CALCIUM SERUM 8.6 mg/dL (8.4-10.2); CREATININE SERUM 0.7 mg/dL (0.6-1.4); GLOM FILT RATE Estimated 104.6 mL/min (>60); MAGNESIUM 1.9 mg/dL (1.6-3.0); POTASSIUM 3.7 mmol/L (3.5-5.1)
[2016-06-25 05:23] LABS: ARTERIAL BLD GAS O2 SATURATION 98.3 % (90.0-100.0); ARTERIAL BLOOD GAS CARBOXY HB 0.2 %sat (0.0-9.0); ARTERIAL BLOOD GAS HCO3 33.2 mmol/L; ARTERIAL BLOOD GAS MET HB 1.1 %sat (0.0-2.0); ARTERIAL BLOOD GAS PCO2 37.9 mmHg (35.0-45.0); ARTERIAL BLOOD GAS pH 7.551 (7.350-7.450)
[2016-06-25 05:24] LABS: ARTERIAL BLOOD GAS ART SITE LEFT BRACHIAL; ARTERIAL BLOOD GAS DELIVERY VENT; ARTERIAL BLOOD GAS VENT MODE AC; ARTERIAL DRAW? YES
[2016-06-26 04:17] LABS: ARTERIAL BLD GAS O2 SATURATION 97.9 % (90.0-100.0); ARTERIAL BLOOD GAS CARBOXY HB 0.2 %sat (0.0-9.0); ARTERIAL BLOOD GAS HCO3 30.4 mmol/L; ARTERIAL BLOOD GAS MET HB 1.1 %sat (0.0-2.0); ARTERIAL BLOOD GAS PCO2 44.3 mmHg (35.0-45.0); ARTERIAL BLOOD GAS pH 7.445 (7.350-7.450)
[2016-06-26 04:19] LABS: ARTERIAL BLOOD GAS ALLEN TEST NORMAL; ARTERIAL BLOOD GAS ART SITE RIGHT RADIAL; ARTERIAL BLOOD GAS DELIVERY VENT; ARTERIAL BLOOD GAS VENT MODE A/C; ARTERIAL DRAW? YES
[2016-06-26 05:58] LABS: HEMATOCRIT 30.9 % (35.0-45.0); HEMOGLOBIN 10.3 gm/dL (12.0-16.0); MEAN CELL VOLUME 87.4 FL (83-96); MEAN CORPUSCULAR HEMOGLOBIN 29.1 PG (28-34); MEAN CORPUSCULAR HGB CONC 33.3 g/dL (30-36); MEAN PLATELET VOLUME 9.8 FL (6.5-11.5); RED BLOOD COUNT 3.54 X10e (3.90-5.30); RED CELL DISTRIBUTION WIDTH 13.6 % (11.0-15.5); WHITE BLOOD COUNT 16.6 X10e3 (4.0-10.5)
[2016-06-26 06:15] LABS: ALBUMIN SERUM 3.1 g/dL (3.5-5.0); BILIRUBIN,TOTAL 0.6 mg/dL (0.2-2.0); CALCIUM SERUM 8.1 mg/dL (8.4-10.2); CREATININE SERUM 0.6 mg/dL (0.6-1.4); GLOM FILT RATE Estimated 110.1 mL/min (>60); MAGNESIUM 2.2 mg/dL (1.6-3.0); POTASSIUM 3.4 mmol/L (3.5-5.1); PROTEIN TOTAL SERUM 5.5 g/dL (6.0-8.3)
[2016-06-27 03:47] LABS: ARTERIAL BLD GAS O2 SATURATION 95.9 % (90.0-100.0); ARTERIAL BLOOD GAS CARBOXY HB 0.3 %sat (0.0-9.0); ARTERIAL BLOOD GAS HCO3 27.8 mmol/L; ARTERIAL BLOOD GAS MET HB 0.8 %sat (0.0-2.0); ARTERIAL BLOOD GAS PCO2 42.8 mmHg (35.0-45.0); ARTERIAL BLOOD GAS pH 7.421 (7.350-7.450)
[2016-06-27 04:00] LABS: ARTERIAL BLOOD GAS ALLEN TEST NORMAL; ARTERIAL BLOOD GAS ART SITE RIGHT RADIAL; ARTERIAL BLOOD GAS DELIVERY VENT; ARTERIAL BLOOD GAS PO2 77.5 mmHg (80.0-100); ARTERIAL BLOOD GAS VENT MODE A/C; ARTERIAL DRAW? YES
[2016-06-27 04:38] LABS: BASOPHIL% 0.2 % (0-2.5); HEMATOCRIT 28.8 % (35.0-45.0); HEMOGLOBIN 9.3 gm/dL (12.0-16.0); LYMPHOCYTE# 1.2 X10e3 (1.0-3.5); LYMPHOCYTE% 10.4 % (17.0-45.0); MEAN CELL VOLUME 88.2 FL (83-96); MEAN CORPUSCULAR HEMOGLOBIN 28.6 PG (28-34); MEAN CORPUSCULAR HGB CONC 32.4 g/dL (30-36); MEAN PLATELET VOLUME 10.1 FL (6.5-11.5); MONOCYTE# 0.6 X10e3 (0-1.0); MONOCYTE% 5.1 % (3.0-12.0); NEUTROPHIL# 9.8 X10e3 (1.5-7.1); NEUTROPHIL% 84.3 % (40-75); PLATELET COUNT 138 X10e3 (140-420); RED BLOOD COUNT 3.26 X10e (3.90-5.30); RED CELL DISTRIBUTION WIDTH 13.8 % (11.0-15.5); WHITE BLOOD COUNT 11.7 X10e3 (4.0-10.5)
[2016-06-27 04:40] LABS: DIFF IND NO
[2016-06-27 04:59] LABS: ALBUMIN SERUM 2.9 g/dL (3.5-5.0); BILIRUBIN,TOTAL 0.8 mg/dL (0.2-2.0); BUN/CREATININE RATIO 21.42; CALCIUM SERUM 7.9 mg/dL (8.4-10.2); CREATININE SERUM 0.7 mg/dL (0.6-1.4); GLOM FILT RATE Estimated 104.6 mL/min (>60); MAGNESIUM 2.1 mg/dL (1.6-3.0); POTASSIUM 3.3 mmol/L (3.5-5.1); PROTEIN TOTAL SERUM 5.6 g/dL (6.0-8.3)
== END 2016-06-27 18:00 | disposition expired | DRG 917 ==
LOC: CED 13:25 → CEDOF 16:06 → CICCU3 16:06 → CEDOF 16:14 → CED 16:14 → CICCU3 16:48 → CEDOF 16:48 → CICCU3 06-25 08:19
PROVIDERS: Emergency Medicine; Internal Medicine
PROC: 02HV33Z Insertion of Infusion Device into Superior Vena Cava, Percutaneous Approach (ICD-10-PCS; principal; 2016-06-25)
PROC: B548ZZA Ultrasonography of Superior Vena Cava, Guidance (ICD-10-PCS; 2016-06-25)
DX: T40.1X1A Poisoning by heroin, accidental (unintentional), initial encounter (principal); J96.01 Acute respiratory failure with hypoxia; I46.9 Cardiac arrest, cause unspecified; I21.4 Non-ST elevation (NSTEMI) myocardial infarction; G93.6 Cerebral edema; A41.9 Sepsis, unspecified organism; G93.1 Anoxic brain damage, not elsewhere classified; J69.0 Pneumonitis due to inhalation of food and vomit; K72.00 Acute and subacute hepatic failure without coma; R65.21 Severe sepsis with septic shock; I24.8 Other forms of acute ischemic heart disease; E87.2 Acidosis; N39.0 Urinary tract infection, site not specified; G40.909 Epilepsy, unspecified, not intractable, without status epilepticus; E87.6 Hypokalemia; R74.0 Nonspecific elevation of levels of transaminase and lactic acid dehydrogenase [LDH]
CPT/HCPCS: 31500; 36415; 36600; 51702; 70450; 71010; 80048; 80053; 80061; 80076; 80307; 81003; 82140; 82803; 82947; 83036; 83605; 83735; 84100; 84132; 84443; 84484; 85025; 85027; 85610; 85730; 87040; 87086; 92950; 93005; 93306; 94002; 94003; 94640; 94760; 95816; 96374; 96375; 99291; C9113; J0171; J1650; J1815; J1940; J1953; J2060; J2250; J2270; J2543; J3370; J3411; J3475